=== PATIENT | female | born 1990 | race Asian ===

== ENCOUNTER 2022-12-01 02:21 | Observation (INO) | payer OTHER ==
[~2022-12-01] VITALS: Ht 157.5 cm; Wt 22.7 kg
== END 2022-12-01 04:02 | disposition home or self-care (01) ==
LOC: LDRP 02:21
PROVIDERS: ADMIT Obstetrics & Gynecology; ATTEND Obstetrics & Gynecology
DX: O26.893 Other specified pregnancy related conditions, third trimester (principal); R10.9 Unspecified abdominal pain; O99.891 Other specified diseases and conditions complicating pregnancy; M54.9 Dorsalgia, unspecified; Z3A.39 39 weeks gestation of pregnancy; Z88.0 Allergy status to penicillin
CPT/HCPCS: 59025; 81002; 94760; G0378

== ENCOUNTER 2022-12-07 10:36 | Observation (INO) | payer OTHER ==
[2022-12-07] MEDS ORDERED: PREN-96 PO (11:50)
== END 2022-12-07 12:10 | disposition home or self-care (01) ==
LOC: UNDOADMOB 10:36 → LDRP 10:36 → UNDODISOB 12:10
PROVIDERS: ADMIT Obstetrics & Gynecology; ATTEND Obstetrics & Gynecology
DX: O62.9 Abnormality of forces of labor, unspecified (principal); Z3A.39 39 weeks gestation of pregnancy; Z88.0 Allergy status to penicillin
CPT/HCPCS: 59025; 81002; 94760; G0378

== ENCOUNTER 2022-12-12 10:30 | Observation (INO) | payer OTHER ==
[~2022-12-12 10:30] MED LIST: PREN-96 PO
== END 2022-12-12 13:53 | disposition home or self-care (01) ==
LOC: UNDOADMOB 10:30 → LDRP 10:30
PROVIDERS: ADMIT Obstetrics & Gynecology; ATTEND Obstetrics & Gynecology
DX: O99.613 Diseases of the digestive system complicating pregnancy, third trimester (principal); K52.9 Noninfective gastroenteritis and colitis, unspecified; O62.9 Abnormality of forces of labor, unspecified; O26.893 Other specified pregnancy related conditions, third trimester; R51.9 Headache, unspecified; O21.2 Late vomiting of pregnancy; Z3A.40 40 weeks gestation of pregnancy; Z88.0 Allergy status to penicillin
CPT/HCPCS: 59025; 76818; 81002; 94760; G0378

== ENCOUNTER 2022-12-13 10:15 | Inpatient (IN) | payer OTHER ==
[~2022-12-13] VITALS: Ht 157.5 cm; Wt 69.9 kg
[2022-12-13] MEDS ORDERED: DERMOPLAST 60ML BOTTLE TOP PRN (10:30)
[2022-12-13] MEDS ORDERED: WITCH HAZEL-GLYCERIN PAD TOP PRN (10:30)
[2022-12-13] MEDS ORDERED: miSOPROStol 100 mcg TAB SL PRN (10:30)
[2022-12-13] MEDS ORDERED: PHISODERM TOP SOLN 240ML BTL TOP PRN (10:30)
[2022-12-13] MEDS ORDERED: LACT. RINGERS/OXYTOCIN 20UNITS 500 ML IV ONE ×2 (10:30→11:00)
[2022-12-13] MEDS ORDERED: PROMETHAZINE HCL 25 MG/ML 1ML IV PRN (10:30)
[2022-12-13] MEDS ORDERED: METHYLERGONOVINE MALEATE 0.2 MG/ML AMP IM PRN (10:30)
[2022-12-13] MEDS ORDERED: BUTORPHANOL TARTRATE 2 MG/1 ML VIAL IV PRN ×2 (10:30)
[2022-12-13] MEDS ORDERED: LIDOCAINE 2%HCL (LOCAL ANESTH.) INJ 20ML MDV IJ PRN (10:30)
[2022-12-13 11:14] LABS: Basophils # (auto) 0 10 ^3/uL (0-0.2); Basophils % (auto) 0.8 % (0.0-2.0); Eosinophils # (auto) 0.1 10 ^3/uL (0-0.8); Hematocrit 38.3 % (36.0-46.0); Hemoglobin 13.1 g/dL (12.2-16.2); Lymphocytes # (auto) 1.1 10 ^3/uL (0.4-5.4); Lymphocytes % (auto) 21.4 % (10.0-50.0); Mean Corpuscular Hemoglobin 32.6 pg (28.0-32.0); Mean Corpuscular Hgb Conc. 34.1 g/dL (32.0-36.0); Mean Corpuscular Volume 95.5 fL (80.0-100.0); Monocytes # (auto) 0.3 10 ^3/uL (0-1.3); Monocytes % (auto) 5.4 % (0.0-12.0); Neutrophils # (auto) 3.7 10 ^3/uL (1.6-8.6); Neutrophils % (auto) 71.4 % (37.0-80.0); Nucleated Red Blood Cells % 0.1 %; Red Blood Cells 4.01 10^6/uL (4.0-5.20); White Blood Cell 5.2 10^3/uL (4.4-10.8)
[2022-12-13] MEDS: LACTATED RINGER'S 1,000 ML IV SCH ×2 (11:18→16:17)
[2022-12-13 11:33] LABS: Urine Bacteria NONE SEEN /hpf (None Seen); Urine Blood Negative /uL (Negative); Urine Mucus FEW (None Seen); Urine Specific Gravity 1.021 (1.001-1.035); Urine WBC 1 /hpf (0 - 5)
[2022-12-13 11:34] LABS: Albumin 2.8 g/dL (3.4-5.0); Calcium 8.4 mg/dL (8.5-10.1); Potassium 4.1 mmol/L (3.5-5.1)
[2022-12-13 11:38] LABS: BUN/Creatinine Ratio 10.6; Bilirubin, Total 0.7 mg/dL (0.2-1.0)
[2022-12-13 11:48] LABS: INR 0.89 (0.9-1.15); Partial Thromboplastin Time 29.6 sec (24.6-33.4)
[2022-12-13 11:54] LABS: Alcohol, Urine < 3.0 mg/dL (0-10); Amphetamine Screen, Urine NEGATIVE (NEGATIVE); Barbiturate Scree,Urine NEGATIVE (NEGATIVE); Benzodiazephine Screen, Urine NEGATIVE (NEGATIVE); Cannabinoid Screen, Urine NEGATIVE (NEGATIVE); Cocaine Screen, Urine NEGATIVE (NEGATIVE); Opiate Scree,Urine NEGATIVE (NEGATIVE); Phencyclidine Screen, Urine NEGATIVE (NEGATIVE)
[2022-12-13] MEDS: miSOPROStol 50 MCG per PRE-CUT 1/2 TAB PO PRN ×2 (11:59→19:27)
[2022-12-13] MEDS ORDERED: CLINDAMYCIN 900MG IV 50 ML IV SCH (14:00)
[2022-12-13] MEDS ORDERED: LACTATED RINGER'S 1,000 ML IV ONE (18:15)
[2022-12-13] MEDS ORDERED: TERBUTALINE SULFATE 1 MG/ML 1ML VIAL SC PRN (18:15)
[2022-12-13] MEDS ORDERED: LACT. RINGERS/OXYTOCIN 20UNITS 1,000 ML IV SCH (18:15)
[2022-12-13] MEDS ORDERED: ROPIVACAINE HCL 200 ML EPI SCH (18:15)
[2022-12-13] MEDS ORDERED: NALOXONE HCL 0.4 MG/ML VIAL IV ONE (18:15)
[2022-12-13] MEDS ORDERED: ePHEDrine SULFATE 50 MG/ML AMP IV ONE (18:15)
[2022-12-13] MEDS ORDERED: Lidocaine W-Epinephrine 1.5%-1:200,000 INJ 10ml Vial ONE (18:52)
[2022-12-13] MEDS ORDERED: LIDOCAINE HCL 1.5% IJ ONE (19:00)
[2022-12-13] MEDS: CLINDAMYCIN 900MG IV 50 ML IV SCH (19:58)
[2022-12-14] MEDS: LACTATED RINGER'S 1,000 ML IV SCH ×3 (02:30→21:17)
[2022-12-14] MEDS: CLINDAMYCIN 900MG IV 50 ML IV SCH ×3 (03:59→17:30)
[2022-12-14] MEDS ORDERED: ONDANSETRON ODT 4 MG TAB PO PRN (06:15)
[2022-12-14] MEDS ORDERED: OXYTOCIN 10UNIT/ML 1ML VIAL IM ONE (06:15)
[2022-12-14] MEDS ORDERED: OXYTOCIN 10UNIT/ML 1ML VIAL ONE (06:31)
[2022-12-14 07:06] LABS: RPR Non Reactive (Non Reactive)
[2022-12-14] MEDS ORDERED: CARBOPROST TROMETHAMINE 250 MCG/1ML VIAL IM ONE ×4 (07:54→08:28)
[2022-12-14] MEDS: ACETAMINOPHEN 325 MG TAB PO PRN ×2 (07:58→21:57)
[2022-12-14] MEDS ORDERED: DIPHENOXYLATE W/ATROPINE 2.5 MG TAB PO PRN (08:00)
[2022-12-14] MEDS ORDERED: CARBOPROST TROMETHAMINE 250 MCG/1ML VIAL IM PRN (08:00)
[2022-12-14] MEDS: DIPHENOXYLATE W/ATROPINE 2.5 MG TAB PO SCH ×2 (08:04→21:55)
[2022-12-14 08:23] LABS: Basophils # (auto) 0.1 10 ^3/uL (0-0.2); Basophils % (auto) 0.3 % (0.0-2.0); Eosinophils # (auto) 0 10 ^3/uL (0-0.8); Eosinophils % (auto) 0.2 % (0.0-7.0); Hematocrit 38.5 % (36.0-46.0); Lymphocytes # (auto) 1.4 10 ^3/uL (0.4-5.4); Lymphocytes % (auto) 8.4 % (10.0-50.0); Mean Corpuscular Hemoglobin 32.8 pg (28.0-32.0); Mean Corpuscular Hgb Conc. 33.8 g/dL (32.0-36.0); Mean Corpuscular Volume 97.1 fL (80.0-100.0); Monocytes % (auto) 5.8 % (0.0-12.0); Neutrophils # (auto) 14.1 10 ^3/uL (1.6-8.6); Neutrophils % (auto) 85.3 % (37.0-80.0); Red Blood Cells 3.96 10^6/uL (4.0-5.20); Red Cell Distribution Width 13.7 % (11.8-14.3); White Blood Cell 16.5 10^3/uL (4.4-10.8)
[2022-12-14 11:00] VITALS: BP 102/67
[2022-12-14] MEDS: IBUPROFEN 600 MG TAB PO PRN ×2 (11:02→17:01)
[2022-12-14] MEDS ORDERED: ceFAZolin 2 GM/D5W100ml 100 ML IV ONE (13:45)
[2022-12-14 15:00] VITALS: BP 94/51
[2022-12-14 15:25] LABS: Basophils # (auto) 0.1 10 ^3/uL (0-0.2); Basophils % (auto) 0.4 % (0.0-2.0); Eosinophils # (auto) 0 10 ^3/uL (0-0.8); Lymphocytes # (auto) 1.2 10 ^3/uL (0.4-5.4); Lymphocytes % (auto) 5.1 % (10.0-50.0); Mean Corpuscular Hemoglobin 31.6 pg (28.0-32.0); Mean Corpuscular Hgb Conc. 34.2 g/dL (32.0-36.0); Mean Corpuscular Volume 92.3 fL (80.0-100.0); Monocytes # (auto) 1.1 10 ^3/uL (0-1.3); Monocytes % (auto) 4.8 % (0.0-12.0); Neutrophils # (auto) 20.5 10 ^3/uL (1.6-8.6); Neutrophils % (auto) 89.7 % (37.0-80.0); Nucleated Red Blood Cells % 0.4 %; Red Blood Cells 4.44 10^6/uL (4.0-5.20); Red Cell Distribution Width 15.3 % (11.8-14.3); White Blood Cell 22.9 10^3/uL (4.4-10.8)
[2022-12-14 19:00] VITALS: BP 85/52
[2022-12-14] MEDS ORDERED: ceFAZolin 1GM/50ML 50 ML IV SCH (22:00)
[2022-12-14 23:00] VITALS: BP 87/56
[2022-12-15 00:48] LABS: Basophils # (auto) 0.2 10 ^3/uL (0-0.2); Basophils % (auto) 1.1 % (0.0-2.0); Eosinophils # (auto) 0.1 10 ^3/uL (0-0.8); Eosinophils % (auto) 0.3 % (0.0-7.0); Hematocrit 27.6 % (36.0-46.0); Hemoglobin 9.8 g/dL (12.2-16.2); Lymphocytes # (auto) 1.9 10 ^3/uL (0.4-5.4); Lymphocytes % (auto) 11.6 % (10.0-50.0); Mean Corpuscular Hemoglobin 32.5 pg (28.0-32.0); Mean Corpuscular Hgb Conc. 35.4 g/dL (32.0-36.0); Mean Corpuscular Volume 91.8 fL (80.0-100.0); Monocytes # (auto) 1.2 10 ^3/uL (0-1.3); Monocytes % (auto) 7.3 % (0.0-12.0); Neutrophils % (auto) 79.7 % (37.0-80.0); Red Blood Cells 3.01 10^6/uL (4.0-5.20); Red Cell Distribution Width 15.5 % (11.8-14.3); White Blood Cell 16.3 10^3/uL (4.4-10.8)
[2022-12-15 03:00] VITALS: BP 97/54
[2022-12-15] MEDS: LACTATED RINGER'S 1,000 ML IV SCH (04:24)
[2022-12-15] MEDS: CLINDAMYCIN 900MG IV 50 ML IV SCH ×2 (04:26→12:27)
[2022-12-15] MEDS: IBUPROFEN 600 MG TAB PO PRN (07:29)
[2022-12-15 07:30] VITALS: BP 92/50
[2022-12-15 11:23] VITALS: BP 88/52
[2022-12-15] MEDS ORDERED: ASCO-56 PO (13:38)
[2022-12-15] MEDS ORDERED: IBU600T PO ×2 (13:38→16:02)
[2022-12-15] MEDS ORDERED: FERR325T48 PO (13:38)
[2022-12-15] MEDS ORDERED: ACET325T10 PO ×2 (13:38→16:02)
[2022-12-15] MEDS ORDERED: DOCU-94 PO ×2 (14:03→16:02)
[2022-12-15] MEDS ORDERED: PREN-96 PO (14:03)
[2022-12-15 15:00] VITALS: BP 99/60
[2022-12-15] MEDS ORDERED: FERR324T PO (16:02)
[2022-12-15] MEDS ORDERED: PREN1TAB56 PO (16:02)
[2022-12-15] MEDS ORDERED: ASCO500T11 PO (16:02)
== END 2022-12-15 15:40 | disposition home or self-care (01) | DRG 806 ==
LOC: LDRP 10:15
PROVIDERS: ADMIT Obstetrics & Gynecology; ATTEND Obstetrics & Gynecology
PROC: 3E0P7VZ Introduction of Hormone into Female Reproductive, Via Natural or Artificial Opening (ICD-10-PCS; 2022-12-13)
PROC: 3E0DXGC Introduction of Other Therapeutic Substance into Mouth and Pharynx, External Approach (ICD-10-PCS; 2022-12-13)
PROC: 10E0XZZ Delivery of Products of Conception, External Approach (ICD-10-PCS; principal; 2022-12-14)
PROC: 3E0R3BZ Introduction of Anesthetic Agent into Spinal Canal, Percutaneous Approach (ICD-10-PCS; 2022-12-14)
PROC: 00HU33Z Insertion of Infusion Device into Spinal Canal, Percutaneous Approach (ICD-10-PCS; 2022-12-14)
PROC: 30233N1 Transfusion of Nonautologous Red Blood Cells into Peripheral Vein, Percutaneous Approach (ICD-10-PCS; 2022-12-14)
DX: O48.0 Post-term pregnancy (principal); D62 Acute posthemorrhagic anemia; Z37.0 Single live birth; O72.0 Third-stage hemorrhage; Z3A.40 40 weeks gestation of pregnancy; Z20.822 Contact with and (suspected) exposure to COVID-19; Z88.0 Allergy status to penicillin; O99.02 Anemia complicating childbirth; O69.2XX0 Labor and delivery complicated by other cord entanglement, with compression, not applicable or unspecified
CPT/HCPCS: 36415; 36430; 59025; 59409; 62282; 80053; 80307; 81001; 85025; 85610; 85730; 86592; 86850; 86900; 86901; 86920; 87426; 94760; 94762; 96360; 96361; 96365; 96366; 96372; 96374; G0378; J2590; J3490; Q0162